=== PATIENT | female | born 1975 | race Asian ===

== ENCOUNTER 2016-11-20 19:58 | Emergency (ER) | payer SELFPAY ==
[~2016-11-20] VITALS: Ht 165.1 cm; Wt 57.7 kg
[2016-11-20 20:14] VITALS: BP 124/82; PULSE 102; RESP 17; TEMP 98.3; O2SAT 99
[2016-11-20] MEDS ORDERED: MOBI15TA PO (21:00)
[2016-11-20] MEDS ORDERED: ONDANSETRON ODT 4 MG TAB PO ONE (21:00)
[2016-11-20] MEDS ORDERED: SILVER SULFADIAZINE 1% CR 50 GM JAR TOPICAL ONE (21:00)
[2016-11-20] MEDS ORDERED: KETOROLAC TROMETHAMINE 60 MG/2 ML (IM) VIAL IM ONE (21:00)
[2016-11-20] MEDS ORDERED: MORPHINE SULFATE 4 MG/ML INJ IM ONE (21:00)
[2016-11-20] MEDS ORDERED: NORC5TAB PO (21:00)
[2016-11-20] MEDS ORDERED: SILV1CRE20 TOPICAL ×2 (21:00)
[2016-11-20] MEDS ORDERED: TETANUS/DIPHTHERIA TOXOID ADULT 0.5 ML VIAL IM ONE (21:00)
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
[2016-11-20 22:06] VITALS: RESP 14
[2016-11-20 22:11] VITALS: BP 118/74; TEMP 98.2
== END 2016-11-20 22:04 | disposition home or self-care (01) ==
LOC: PHED 19:58
DX: T23.251A Burn of second degree of right palm, initial encounter (principal); X08.8XXA Exposure to other specified smoke, fire and flames, initial encounter; Y93.G3 Activity, cooking and baking; Y92.000 Kitchen of unspecified non-institutional (private) residence as the place of occurrence of the external cause; Z23 Encounter for immunization
CPT/HCPCS: 16020; 90471; 90714; 96372; 99284; J1885; J2270